=== PATIENT | male | born 1960 | race Caucasian/White ===

== ENCOUNTER 2018-07-27 11:38 | Outpatient (CLI) | payer BC, SELFPAY ==
[2018-07-27 12:45] LABS: HGB 14.8 g/dL (13.5-17.5); Mean Corp. HGB Concentration 35.2 g/dL (32.0-36.0); Mean Corpuscular Hemoglobin 32.7 pg (27.0-33.0); Mean Corpuscular Volume 92.9 fL (80-95); Platelet Count 174 x1000/uL (130-400); RBC 4.52 m/cumm (4.50-6.00); RBC Distribution Width 13.3 % (11.8-14.1); White Blood Cell Count 4.66 k/cumm (4.4-10.8)
[2018-07-27 13:40] LABS: ALT 20 U/L (12-78); AST 10 U/L (15-37); Albumin 3.9 g/dL (3.4-5.0); Alkaline Phosphatase 122 U/L (46-116); BUN 20 mg/dL (7-18); Bilirubin, Total 0.5 mg/dL (0.2-1.0); Calcium 9.1 mg/dL (8.5-10.1); Chloride 103 mmol/L (98-107); Glucose 102 mg/dL (70-100); Potassium 3.9 mmol/L (3.5-5.1); Sodium 140 mmol/L (136-145); Total Protein 7.2 g/dL (6.4-8.2)
== END 2018-07-27 11:58 ==
PROVIDERS: PCP General Practice; Visit Provider Family Medicine
DX: Z51.5 Encounter for palliative care (principal); C71.9 Malignant neoplasm of brain, unspecified
CPT/HCPCS: 36415; 80053; 85027

== ENCOUNTER 2018-07-27 20:36 | Emergency (ER) | payer BC, SELFPAY ==
[2018-07-27 20:42] VITALS: BP 141/82; PULSE 80; RESP 16; TEMP 36.9; O2SAT 99
[2018-07-27 21:16] LABS: Abs Immature Grans 0.01 k/cumm (0.0-0.09); Absolute Basophil Count 0.02 k/cumm (0.0-0.2); Absolute Eosinophil Count 0.16 k/cumm (0.0-0.7); Absolute Lymphocyte Count 0.73 k/cumm (1.2-3.4); Absolute Monocyte Count 0.59 k/cumm (0.11-0.7); Absolute Neutrophil Count 3.51 k/cumm (1.2-6.7); Basophils % 0.4; Eosinophils % 3.2; HCT 40.6 % (40.0-50.0); HGB 14.3 g/dL (13.5-17.5); Immature Grans % 0.2; Lymphocytes % 14.5; Mean Corp. HGB Concentration 35.2 g/dL (32.0-36.0); Mean Corpuscular Hemoglobin 32.4 pg (27.0-33.0); Mean Corpuscular Volume 92.1 fL (80-95); Monocytes % 11.8; Neutrophils % 69.9; Platelet Count 161 x1000/uL (130-400); RBC 4.41 m/cumm (4.50-6.00); RBC Distribution Width 12.9 % (11.8-14.1); White Blood Cell Count 5.02 k/cumm (4.4-10.8)
[2018-07-27] MEDS: Normal Saline 1,000 ML 1000 ML IV (21:20)
[2018-07-27] MEDS: Ondansetron 4 MG/2 ML VIAL IVP (21:25)
[2018-07-27 21:42] LABS: Bilirubin Negative (Negative); Blood Negative (Negative); Clarity Clear; Glucose Negative (Negative); Ketones Negative (Negative); Leukocyte Esterase Negative (Negative); Nitrite Negative (Negative); Specific Gravity 1.015 (1.005-1.025); Urobilinogen 0.2 EU/dL (Up TO 0.2)
[2018-07-27 21:52] LABS: ALT 18 U/L (12-78); AST 12 U/L (15-37); Albumin 3.7 g/dL (3.4-5.0); Alkaline Phosphatase 110 U/L (46-116); Anion Gap 7.8 mmol/L (3-11); BUN 19 mg/dL (7-18); Bilirubin, Total 0.4 mg/dL (0.2-1.0); CO2 28.2 mmol/L (21.0-32.0); CREATININE 0.73 mg/dL (0.70-1.30); Calcium 8.8 mg/dL (8.5-10.1); Chloride 103 mmol/L (98-107); Glucose 111 mg/dL (70-100); Lipase 125 U/L (73-393); Potassium 3.7 mmol/L (3.5-5.1); Sodium 139 mmol/L (136-145); Total Protein 7.4 g/dL (6.4-8.2)
--- NOTE | 2018-07-27 22:19 | W.ED.GENAD ---
Discharge Plan Disposition Patient Disposition: HOME Condition: Stable Discharge Details Chief Complaint: Abd Prob Clinical Impression: Diverticulitis Primary Care Provider: Edwin Mclaughlin ED Provider: Chato Lyman Home Meds and New Rx's Prescriptions: New metronidazole 500 mg tablet 500 mg PO TID 7 Days Qty: 21 RF: 0 ciprofloxacin HCl 500 mg tablet 500 mg PO Q12H Qty: 14 RF: 0 Continued ondansetron HCl [Zofran] 8 mg tablet 8 mg PO QD-BID PRNRF: 0 temozolomide 100 mg capsule 300 mg PO HS RF: 0 tamsulosin [Flomax] 0.4 mg capsule 0.4 mg PO DAILY RF: 0 amlodipine [Norvasc] 10 mg tablet 10 mg PO DAILY RF: 0 zolpidem [Ambien] 10 mg tablet 10 mg PO QHS PRNRF: 0 paroxetine HCl [Paxil] 40 mg tablet 40 mg PO DAILY RF: 0 finasteride [Proscar] 5 mg tablet 5 mg PO DAILY RF: 0 levetiracetam [Keppra] 1,000 mg tablet 1,000 mg PO BID RF: 0 Vimpat 200 mg tablet 200 mg PO BID RF: 0 [id number]-[id number] [Fioricet] 50-300-40 mg capsule 1 cap PO Q4H PRNRF: 0 acetaminophen [Acetaminophen Extra Strength] 500 mg Tablet 1,000 mg PO PRN PRNRF: 0 ibuprofen 600 mg Tablet 600 mg PO TID PRNRF: 0 loratadine [Claritin] 10 mg Tablet 1 tab PO DAILY RF: 0 Discharge Instructions Instructions: Diverticulitis (ED) Additional Instructions: Return immediately to the emergency department for any fever chills, worsening abdominal pain, or further concerns you may have. Otherwise take antibiotics as prescribed until fully complete and follow-up with your primary care provider for reassessment preferably next week Referrals: Edwin Mclaughlin MD [Primary Care Provider] - 1 week (For reassessment of diverticulitis) Discharge Data Discharge Date/Time-TO BE ENTERED AT DEPARTURE: 07/28/18 00:38 Medical Decision Making Patient presenting the emergency department chief complaint of abdominal pain. Patient states he began having mild left lower quadrant yesterday evening but it is has not gotten any better. Patient denies any fever chills vomiting. Physical exam shows significant left lower quadrant tenderness otherwise nondiagnostic unremarkable exam. Concern for diverticulitis with patient stating history of similar. Plan to check labs and perform CT imaging. Patient does have IV contrast dye but does state no issue with oral contrast. Patient given Zofran and fluids pending results. Patient denies need for pain medication at this time. Review of labs is reassuring. Review of CT scan shows unremarkable diverticulitis without abscess or perforation noted. Patient feels comfortable going home on oral antibiotics and return precautions were addressed. Patient started on Cipro and Flagyl and placed up on care management list for a follow-up appointment preferably within the next week. After discussion of diagnosis and plan of care patient has no further needs, questions, or concerns and states clear understanding to return to the emergency department for any worsening symptoms. Lab Data Lab results reviewed: Yes I reviewed the patient's lab results. HPI General Mode of arrival: ambulatory. Date/Time Provider Initiated Documentation: 07/27/18 20:59. Limitations to Documentation: no limitations. Information obtained by: patient and RN notes reviewed. History of Present Illness 58 year old M presents to the emergency department with the chief complaint of LLQ pain, with intensity rated at 4. Quality is described as aching, and is localized to the abdomen. Patient started experiencing this hour(s) (24) No relieving factors improve symptom(s), Patient notes no other symptoms.. Patient did receive the following treatments prior to arrival, none Related Data Home Medications Medication Instructions Recorded Confirmed amlodipine 10 mg tablet 10 mg PO DAILY 07/20/18 07/27/18 [id number] 1 cap PO Q4H PRN 07/20/18 07/27/18 50 mg-300 mg-40 mg capsule finasteride 5 mg tablet 5 mg PO DAILY 07/20/18 07/27/18 lacosamide 200 mg tablet 200 mg PO BID 07/20/18 07/27/18 levetiracetam 1,000 mg tablet 1,000 mg PO BID tab 07/20/18 07/27/18 ondansetron HCl 8 mg tablet 8 mg PO QD-BID PRN 07/20/18 07/27/18 paroxetine 40 mg tablet 40 mg PO DAILY 07/20/18 07/27/18 tamsulosin 0.4 mg capsule 0.4 mg PO DAILY 07/20/18 07/27/18 temozolomide 100 mg capsule 300 mg PO HS cap 07/20/18 07/27/18 zolpidem 10 mg tablet 10 mg PO QHS PRN 07/20/18 07/27/18 acetaminophen [Acetaminophen Extra 1,000 mg PO PRN PRN 07/27/18 07/27/18 Strength] ibuprofen 600 mg PO TID PRN 07/27/18 07/27/18 loratadine [Claritin] 1 tab PO DAILY 07/27/18 07/27/18 ciprofloxacin HCl 500 mg PO Q12H #14 tab 07/28/18 metronidazole 500 mg PO TID 7 Days #21 tab 07/28/18 Previous Rx's Medication Instructions Recorded ciprofloxacin HCl 500 mg PO Q12H #14 tab 07/28/18 metronidazole 500 mg PO TID 7 Days #21 tab 07/28/18 Allergies Allergy/AdvReac Type Severity Reaction Status Date / Time Penicillins Allergy Severe Anaphylaxsi Verified 07/27/18 20:50 s contrast dye Allergy rash Uncoded 07/27/18 20:50 General Stated Complaint: Abd Prob EDGAR: 3 Review of Systems Constitutional Denies chills, Denies fever(s) and Denies poor appetite Cardiovascular Denies chest pain and Denies dyspnea Respiratory Denies cough and Denies dyspnea Gastrointestinal Reports as per HPI, Reports abdominal pain, Denies melena, Denies change in bowel habits, Denies constipation, Denies diarrhea, Reports nausea and Denies vomiting Genitourinary Denies hematuria, Denies difficulty urinating, Denies urinary hesitancy, Denies urinary incontinence and Denies urinary urgency Integumentary/Breasts Denies rash PFSH Medical History Shoulder pain (Acute) Counseling regarding advance directives and goals of care (Acute) Palliative care patient (Chronic) Glioblastoma multiforme (Chronic) Glioblastoma (Acute) History of DVT (deep vein thrombosis) (Acute) Anxiety (Chronic) Depression (Chronic) Hypertension (Chronic) DVT (deep venous thrombosis) (Resolved) Surgical History History of craniotomy (Acute) Presence of IVC filter (Acute) Family History Mother Age: 84 Lung cancer Daughter No problems noted. Social History caregiver/support person: Yes household members: spouse housing: house marital status details: x 37 yrs; has 2 stepdaughters lives independently: No number of children: 1 highest education level completed: Master's degree service: No residential: No current occupational status: disabled leisure activities: art well-balanced diet: daily or most days high-fat food intake: 0-1 times daily daily servings fruits/ve-4 daily servings of milk/calcium: 2-4 eating out: rarely or never reads food labels: seldom or never during the past year weight has: remained stable what type of physical activity do you participate in: walking and irregular exercise Smoking and Tabacco status: Never What is your relationship status?: How often do you talk on the phone with friends or family?: once per week How often do you get together with friends or relatives?: once per week Panel score (0-1 are the most socially isolated patients): 1 Seatbelt use: always Exam Const General: cooperative Orientation: alert, awake and oriented x3 Resp Effort & Inspection: normal respiratory effort and able to speak in complete sentences Auscultation: clear to auscultation bilaterally Cardio Rate: regular rate Rhythm: regular rhythm Heart Sounds: S1 normal and S2 normal GI Palpation: soft, no hepatosplenomegaly, not firm, no guarding, no masses, no pulsatile masses, not rigid, no splenomegaly and tender in the LLQ Auscultation: normal bowel sounds Back/Spine/Pelvis Back: no CVA tenderness Neuro General: alert, awake, oriented x3, gait normal and moves all extremities Course Vital Signs Temperature 36.9 C 07/27/18 20:42 Pulse 80 07/27/18 20:42 Respiratory Rate 16 07/27/18 20:42 Blood Pressure 141/82 H 07/27/18 20:42 Pulse Oximetry 99 07/27/18 20:42 Temperature 36.9 C 07/27/18 20:42 Pulse 80 07/27/18 20:42 Respiratory Rate 16 07/27/18 20:42 Respiratory Effort Non-Labored 07/27/18 20:46 Blood Pressure 141/82 H 07/27/18 20:42 Blood Pressure Position Sitting 07/27/18 20:42 Pulse Oximetry 99 07/27/18 20:42 Oxygen Delivery Method Room Air 07/27/18 20:42 Oxygen Flow Rate 0 07/27/18 20:42 Pain Level 6 07/27/18 20:42 Lab/Test Results Lab/Test Results: Laboratory Tests Range/Units 07/27/18 07/27/18 21:00 21:00 WBC (4.4-10.8) k/cumm 5.02 RBC (4.50-6.00) m/cumm 4.41 L Hgb (13.5-17.5) g/dL 14.3 Hct (40.0-50.0) % 40.6 MCV (80-95) fL 92.1 MCH (27.0-33.0) pg 32.4 MCHC (32.0-36.0) g/dL 35.2 RDW (11.8-14.1) % 12.9 Plt Count (130-400) x1000/uL 161 MPV (8.0-11.0) fL 9.0 Immature Gran % 0.2 Neutrophils % 69.9 Lymphocytes % 14.5 Monocytes % 11.8 Eosinophils % 3.2 Basophils % 0.4 Absolute Neutrophils (1.2-6.7) k/cumm 3.51 Absolute Lymphocytes (1.2-3.4) k/cumm 0.73 L Absolute Monocytes (0.11-0.7) k/cumm 0.59 Absolute Eosinophils (0.0-0.7) k/cumm 0.16 Absolute Basophils (0.0-0.2) k/cumm 0.02 Sodium (136-145) mmol/L 139 Potassium (3.5-5.1) mmol/L 3.7 Chloride (98-107) mmol/L 103 Carbon Dioxide (21.0-32.0) mmol/L 28.2 Anion Gap (3-11) mmol/L 7.8 BUN (7-18) mg/dL 19 H Creatinine (0.70-1.30) mg/dL 0.73 Estimated GFR/1.73 m2 (mL/min/1.73m2) >= 60.00 Glucose (70-100) mg/dL 111 H Calcium (8.5-10.1) mg/dL 8.8 Total Bilirubin (0.2-1.0) mg/dL 0.4 AST (15-37) U/L 12 L ALT (12-78) U/L 18 Alkaline Phosphatase (46-116) U/L 110 Total Protein (6.4-8.2) g/dL 7.4 Albumin (3.4-5.0) g/dL 3.7 Lipase (73-393) U/L 125
--- NOTE | 2018-07-27 22:22 | ED.GENADUL_ITS ---
Discharge Plan Disposition Patient Disposition: HOME Condition: Stable Discharge Details Chief Complaint: Abd Prob Clinical Impression: Diverticulitis Primary Care Provider: Edwin Mclaughlin ED Provider: Chato Lyman Home Meds and New Rx's Prescriptions: New metronidazole 500 mg tablet 500 mg PO TID 7 Days Qty: 21 RF: 0 ciprofloxacin HCl 500 mg tablet 500 mg PO Q12H Qty: 14 RF: 0 Continued ondansetron HCl [Zofran] 8 mg tablet 8 mg PO QD-BID PRNRF: 0 temozolomide 100 mg capsule 300 mg PO HS RF: 0 tamsulosin [Flomax] 0.4 mg capsule 0.4 mg PO DAILY RF: 0 amlodipine [Norvasc] 10 mg tablet 10 mg PO DAILY RF: 0 zolpidem [Ambien] 10 mg tablet 10 mg PO QHS PRNRF: 0 paroxetine HCl [Paxil] 40 mg tablet 40 mg PO DAILY RF: 0 finasteride [Proscar] 5 mg tablet 5 mg PO DAILY RF: 0 levetiracetam [Keppra] 1,000 mg tablet 1,000 mg PO BID RF: 0 Vimpat 200 mg tablet 200 mg PO BID RF: 0 [id number]-vcbprtaikxvlk-xbpv [Fioricet] 50-300-40 mg capsule 1 cap PO Q4H PRNRF: 0 acetaminophen [Acetaminophen Extra Strength] 500 mg Tablet 1,000 mg PO PRN PRNRF: 0 ibuprofen 600 mg Tablet 600 mg PO TID PRNRF: 0 loratadine [Claritin] 10 mg Tablet 1 tab PO DAILY RF: 0 Discharge Instructions Instructions: Diverticulitis (ED) Additional Instructions: Return immediately to the emergency department for any fever chills, worsening abdominal pain, or further concerns you may have. Otherwise take antibiotics as prescribed until fully complete and follow-up with your primary care provider for reassessment preferably next week Referrals: Edwin Mclaughlin MD [Primary Care Provider] - 1 week (For reassessment of diverticulitis) Discharge Data Discharge Date/Time-TO BE ENTERED AT DEPARTURE: 07/28/18 00:38 Medical Decision Making Patient presenting the emergency department chief complaint of abdominal pain. Patient states he began having mild left lower quadrant yesterday evening but it is has not gotten any better. Patient denies any fever chills vomiting. Physical exam shows significant left lower quadrant tenderness otherwise nondiagnostic unremarkable exam. Concern for diverticulitis with patient stati ng history of similar. Plan to check labs and perform CT imaging. Patient does have IV contrast dye but does state no issue with oral contrast. Patient given Zofran and fluids pending results. Patient denies need for pain medication at this time. Review of labs is reassuring. Review of CT scan shows unremarkable diverticulitis without abscess or perforation noted. Patient feels comfortable going home on oral antibiotics and return precautions were addressed. Patient started on Cipro and Flagyl and placed up on care management list for a follow- up appointment preferably within the next week. After discussion of diagnosis and plan of care patient has no further needs, questions, or concerns and states clear understanding to return to the emergency department for any worsening symptoms. Lab Data Lab results reviewed: Yes I reviewed the patient's lab results. HPI General Mode of arrival: ambulatory . Date/Time Provider Initiated Documentation: 07/27/18 20:59 . Limitations to Documentation: no limitations . Information obtained by: patient and RN notes reviewed . History of Present Illness 58 year old M presents to the emergency department with the chief complaint of LLQ pain, with intensity rated at 4. Quality is described as aching, and is localized to the abdomen. Patient started experiencing this hour(s) (24) No relieving factors improve symptom(s), Patient notes no other symptoms.. Patient did receive the following treatments prior to arrival, none Related Data Home Medications Medication Instructions Recorded Confirmed amlodipine 10 mg tablet 10 mg PO DAILY 07/20/18 07/27/18 [id number]-buvtxmyjzxvkc-hqvdgsnj 1 cap PO Q4H PRN 07/20/18 07/27/18 50 mg-300 mg-40 mg capsule finasteride 5 mg tablet 5 mg PO DAILY 07/20/18 07/27/18 lacosamide 200 mg tablet 200 mg PO BID 07/20/18 07/27/18 levetiracetam 1,000 mg tablet 1,000 mg PO BID tab 07/20/18 07/27/18 ondansetron HCl 8 mg tablet 8 mg PO QD-BID PRN 07/20/18 07/27/18 paroxetine 40 mg tablet 40 mg PO DAILY 07/20/18 07/27/18 tamsulosin 0.4 mg capsule 0.4 mg PO DAILY 07/20/18 07/27/18 temozolomide 100 mg capsule 300 mg PO HS cap 07/20/18 07/27/18 zolpidem 10 mg tablet 10 mg PO QHS PRN 07/20/18 07/27/18 acetaminophen [Acetaminophen Extra 1,000 mg PO PRN PRN 07/27/18 07/27/18 Strength] ibuprofen 600 mg PO TID PRN 07/27/18 07/27/18 loratadine [Claritin] 1 tab PO DAILY 07/27/18 07/27/18 ciprofloxacin HCl 500 mg PO Q12H #14 tab 07/28/18 metronidazole 500 mg PO TID 7 Days #21 tab 07/28/18 Previous Rx's Medication Instructions Recorded ciprofloxacin HCl 500 mg PO Q12H #14 tab 07/28/18 metronidazole 500 mg PO TID 7 Days #21 tab 07/28/18 Allergies Allergy/AdvReac Type Severity Reaction Status Date / Time Penicillins Allergy Severe Anaphylaxsi Verified 07/27/18 20:50 s contrast dye Allergy rash Uncoded 07/27/18 20:50 General Stated Complaint: Abd Prob EDGAR: 3 Review of Systems Constitutional Denies chills, Denies fever(s) and Denies poor appetite Cardiovascular Denies chest pain and Denies dyspnea Respiratory Denies cough and Denies dyspnea Gastrointestinal Reports as per HPI, Reports abdominal pain, Denies melena, Denies change in bowel habits, Denies constipation, Denies diarrhea, Reports nausea and Denies vomiting Genitourinary Denies hematuria, Denies difficulty urinating, Denies urinary hesitancy, Denies urinary incontinence and Denies urinary urgency Integumentary/Breasts Denies rash PFSH Medical History Shoulder pain (Acute) Counseling regarding advance directives and goals of care (Acute) Palliative care patient (Chronic) Glioblastoma multiforme (Chronic) Glioblastoma (Acute) History of DVT (deep vein thrombosis) (Acute) Anxiety (Chronic) Depression (Chronic) Hypertension (Chronic) DVT (deep venous thrombosis) (Resolved) Surgical History History of craniotomy (Acute) Presence of IVC filter (Acute) Family History Mother Age: 84 Lung cancer Daughter No problems noted. Social History caregiver/support person: Yes household members: spouse housing: house marital status details: x 37 yrs; has 2 stepdaughters lives independently: No number of children: 1 highest education level completed: Master's degree service: No shelter: No current occupational status: disabled leisure activities: art well-balanced diet: daily or most days high-fat food intake: 0-1 times daily daily servings fruits/ve-4 daily servings of milk/calcium: 2-4 eating out: rarely or never reads food labels: seldom or never during the past year weight has: remained stable what type of physical activity do you participate in: walking and irregular exercise Smoking and Tabacco status: Never What is your relationship status?: How often do you talk on the phone with friends or family?: once per week How often do you get together with friends or relatives?: once per week Panel score (0-1 are the most socially isolated patients): 1 Seatbelt use: always Exam Const General: cooperative Orientation: alert, awake and oriented x3 Resp Effort & Inspection: normal respiratory effort and able to speak in complete sentences Auscultation: clear to auscultation bilaterally Cardio Rate: regular rate Rhythm: regular rhythm Heart Sounds: S1 normal and S2 normal GI Palpation: soft, no hepatosplenomegaly, not firm, no guarding, no masses, no pulsatile masses, not rigid, no splenomegaly and tender in the LLQ Auscultation: normal bowel sounds Back/Spine/Pelvis Back: no CVA tenderness Neuro General: alert, awake, oriented x3, gait normal and moves all extremities Course Vital Signs Temperature 36.9 C 07/27/18 20:42 Pulse 80 07/27/18 20:42 Respiratory Rate 16 07/27/18 20:42 Blood Pressure 141/82 H 07/27/18 20:42 Pulse Oximetry 99 07/27/18 20:42 Temperature 36.9 C 07/27/18 20:42 Pulse 80 07/27/18 20:42 Respiratory Rate 16 07/27/18 20:42 Respiratory Effort Non-Labored 07/27/18 20:46 Blood Pressure 141/82 H 07/27/18 20:42 Blood Pressure Position Sitting 07/27/18 20:42 Pulse Oximetry 99 07/27/18 20:42 Oxygen Delivery Method Room Air 07/27/18 20:42 Oxygen Flow Rate 0 07/27/18 20:42 Pain Level 6 07/27/18 20:42 Lab/Test Results Lab/Test Results: Laboratory Tests Range/Units 07/27/18 07/27/18 21:00 21:00 WBC (4.4-10.8) k/cumm 5.02 RBC (4.50-6.00) m/cumm 4.41 L Hgb (13.5-17.5) g/dL 14.3 Hct (40.0-50.0) % 40.6 MCV (80-95) fL 92.1 MCH (27.0-33.0) pg 32.4 MCHC (32.0-36.0) g/dL 35.2 RDW (11.8-14.1) % 12.9 Plt Count (130-400) x1000/uL 161 MPV (8.0-11.0) fL 9.0 Immature Gran % 0.2 Neutrophils % 69.9 Lymphocytes % 14.5 Monocytes % 11.8 Eosinophils % 3.2 Basophils % 0.4 Absolute Neutrophils (1.2-6.7) k/cumm 3.51 Absolute Lymphocytes (1.2-3.4) k/cumm 0.73 L Absolute Monocytes (0.11-0.7) k/cumm 0.59 Absolute Eosinophils (0.0-0.7) k/cumm 0.16 Absolute Basophils (0.0-0.2) k/cumm 0.02 Sodium (136-145) mmol/L 139 Potassium (3.5-5.1) mmol/L 3.7 Chloride (98-107) mmol/L 103 Carbon Dioxide (21.0-32.0) mmol/L 28.2 Anion Gap (3-11) mmol/L 7.8 BUN (7-18) mg/dL 19 H Creatinine (0.70-1.30) mg/dL 0.73 Estimated GFR/1.73 m2 (mL/min/1.73m2) >= 60.00 Glucose (70-100) mg/dL 111 H Calcium (8.5-10.1) mg/dL 8.8 Total Bilirubin (0.2-1.0) mg/dL 0.4 AST (15-37) U/L 12 L ALT (12-78) U/L 18 Alkaline Phosphatase (46-116) U/L 110 Total Protein (6.4-8.2) g/dL 7.4 Albumin (3.4-5.0) g/dL 3.7 Lipase (73-393) U/L 125
[2018-07-27] MEDS: Omnipaque 350 MG/ML 100 ML BTL IJ (23:07)
[2018-07-27 23:15] VITALS: BP 131/73; PULSE 72; RESP 16; TEMP 36.8; O2SAT 100
--- NOTE | 2018-07-27 23:47 | DI.CT_ITS ---
SYMPTOM/DIAGNOSIS: LLQ ABD PAIN ABDOMEN AND PELVIC CT: CT examination of the abdomen and pelvis was performed with oral contrast only. Images were obtained through the lung bases and show a 2 by 7 mm. in diameter right basilar pulmonary nodule associated with the fissure, presumably representing an intrapulmonary lymph node. No other focal abnormality is seen. Liver and spleen are unremarkable by noncontrast criteria as is the pancreas. Gallbladder has been surgically removed. No biliary dilatation is seen. Abdominal aorta is of normal diameter. Note is made of an IVC filter in place below the level of the renal arteries. Pancreas appears normal. Adrenals appear normal. There are bilateral non obstructing renal calculi. No hydronephrosis or ureterolithiasis identified and urinary bladder is unremarkable in appearance. No significant abdominal wall hernia is seen. Tiny bilateral fat containing inguinal hernias noted. No abdominal or pelvic adenopathy is seen. Appendix appears normal. There is colonic wall thickening in the proximal sigmoid colon with marked associated pericolonic increased fat attenuation consistent with acute diverticulitis. No evidence of perforation or abscess. CONCLUSION: 1. Findings consistent with acute diverticulitis of the proximal sigmoid. 2. Bilateral non obstructing renal calculi.
--- NOTE | 2018-07-28 | DI.VRAD_ITS ---
EXAM: CT Abdomen and Pelvis Without Contrast EXAM DATE/TIME: 07/27/2018 9:40 PM CLINICAL HISTORY: 58 years old, male; Pain; Abdominal pain; Localized; Left lower quadrant (llq) TECHNIQUE: Axial computed tomography images of the abdomen and pelvis without contrast. All CT scans at this facility use at least one of these dose optimization techniques: automated exposure control; mA and/or kV adjustment per patient size (includes targeted exams where dose is matched to clinical indication); or iterative reconstruction. Coronal and sagittal reformatted images were created and reviewed. COMPARISON: No relevant prior studies available. FINDINGS: Lower thorax: Unremarkable. ABDOMEN: Liver: No suspicious lesions. Gallbladder and bile ducts: No acute or concerning findings. Pancreas: Unremarkable. Spleen: No suspicious lesions. Adrenals: Unremarkable. No suspicious nodule. Kidneys and ureters: 8mm stone in the left kidney. 2 mm stone in the right kidney. Stomach and bowel: Inflammatory changes around a sigmoid colon diverticulum. Appendix: Normal appendix. PELVIS: Bladder: Unremarkable as visualized. Reproductive: Unremarkable as visualized. ABDOMEN and PELVIS: Intraperitoneal space: No free air. No significant fluid collection. Bones/joints: No acute fracture. No dislocation. Soft tissues: Unremarkable. Vasculature: Unremarkable. Lymph nodes: Unremarkable. IMPRESSION: Uncomplicated sigmoid colon diverticulitis. Dictated and Authenticated by: Brenden Mcconnell MD. Ordering:ANNELISE Reis MD
[2018-07-28] MEDS: metroNIDAZOLE 500 MG TAB PO (00:20)
[2018-07-28] MEDS: Ciprofloxacin 500 MG TAB PO (00:20)
[2018-07-28 00:30] VITALS: BP 134/80; PULSE 76; RESP 16; O2SAT 99
--- NOTE | 2018-07-31 08:34 | PDOC.ERCMPRO ---
Care Management Progress Note 07/31-Eric FLORES requested assistance with a PCP (Arnoldo) f/u in one week for recheck/reassess diverticulitis. Referral faxed to Dr. Mclaughlin's office this am.
== END 2018-07-28 00:38 | disposition home or self-care (01) ==
PROVIDERS: Emergency Provider Nurse Practitioner Family; PCP General Practice
DX: K57.32 Diverticulitis of large intestine without perforation or abscess without bleeding (principal); I10 Essential (primary) hypertension
CPT/HCPCS: 36415; 80053; 83690; 96361; 96374; 99284; 74176; 81003; 85025; J2405; J3490

== ENCOUNTER 2018-07-28 00:40 | Outpatient (CLI) | payer BC, SELFPAY ==
--- NOTE | 2018-07-28 08:55 | DI.MRI_ITS ---
SYMPTOMS/DIAGNOSIS: PROGRESSION OF DISEASE, GLIOBLASTOMA, C71.9, H/O RESECTION 2017 MRI OF THE BRAIN: Pre and post contrast MRI of the brain was performed according to protocol. There are no priors for comparison at this time. In the region of the left frontal lobe and caudate lobe there is an area of rim enhancement which measures 1.4 cm AP x 0.7 cm transverse x 1.3 cm craniocaudad presumably reflecting the surgical bed. There is also linear enhancement extending along the base of the left frontal lobe. There is thin linear enhancement along the lateral aspect of the frontal horn of the left lateral ventricle. These areas of enhancement appear similar to the reported enhancement on the MRI of the brain from 05/01/18 from [facility] in [place], [place]. No other enhancing areas are seen on the current MRI examination. The FLAIR and T 2 weighed images show hyperintense signal in the white matter in the left frontal lobe, the left basilar ganglia and lentiform nucleus and the medial aspect of the left thalamus. The ventricles appear intact. No midline shift or mass effect is identified. The diffusion weighted images show no evidence of an acute infarct. The gradient images show evidence of old hemorrhage within the surgical bed. The visualized paranasal sinuses are clear. The orbits and retro-orbital soft tissues appear grossly unremarkable. There is a flow void seen in the [place]. IMPRESSION: 1. Rim enhancement seen presumably in the region of the surgical bed involving the left basilar ganglia and left frontal lobe. Unchanged linear enhancement seen along the left frontal lobe and along the frontal horn of the left lateral ventricle. 2. No other abnormal areas of enhancement. 3. T 2 hyperintense signal seen on the FLAIR and T 2 weighted images involving the left frontal lobe, basilar ganglia, lentiform nucleus and the medial aspect of the left thalamus. The prior films, particularly the examination from 05/01/18, should be obtained for directed comparison of the findings.
[2018-07-28] MEDS: Gadoterate meglumine 20 ML VIAL 10 ML IVP (09:47)
== END 2018-07-28 01:00 ==
PROVIDERS: PCP General Practice; Visit Provider Family Medicine
DX: C71.9 Malignant neoplasm of brain, unspecified (principal); Z98.890 Other specified postprocedural states
CPT/HCPCS: 70553

== ENCOUNTER 2018-10-24 03:26 | Emergency (ER) | payer BC, SELFPAY ==
[2018-10-24] VITALS (18 sets, daily range): BP systolic 92–151; BP diastolic 47–84; PULSE 67–72; RESP 20; TEMP 36.6–36.8; O2SAT 91–100
[2018-10-24] MEDS: Normal Saline 1,000 ML 1000 ML IV (03:40)
--- NOTE | 2018-10-24 03:42 | W.ED.GENAD ---
Discharge Plan Disposition Patient Disposition: HOME Condition: Improving Discharge Details Chief Complaint: Abd Prob Clinical Impression: Calculus of distal right ureter Primary Care Provider: Edwin Mclaughlin ED Provider: Ry Bahena Home Meds and New Rx's Prescriptions: Continued lisinopril 20 mg tablet 20 mg PO DAILY RF: 0 methylphenidate HCl [Ritalin LA] 10 mg capsule,ER biphasic 50-50 10 mg PO QAM MDD 10 Qty: 30 RF: 0 temozolomide 100 mg capsule 300 mg PO HS RF: 0 tamsulosin [Flomax] 0.4 mg capsule 0.4 mg PO DAILY RF: 0 amlodipine [Norvasc] 10 mg tablet 10 mg PO DAILY RF: 0 paroxetine HCl [Paxil] 40 mg tablet 40 mg PO DAILY RF: 0 finasteride [Proscar] 5 mg tablet 5 mg PO DAILY RF: 0 Vimpat 200 mg tablet 200 mg PO BID RF: 0 trazodone 150 mg tablet 150 mg PO QHS MDD 300 mg Qty: 90 RF: 0 levetiracetam 1,000 mg tablet 1,000 mg PO BID Qty: 180 RF: 1 yhpvqmdsws-jxepyikqogjtr-dpna [Fioricet] 50-300-40 mg Capsule 1 cap PO Q8H PRNRF: 0 ondansetron HCl [Zofran] 8 mg Tablet 8 mg PO BID PRNRF: 0 dexamethasone 2 mg Tablet 2 mg PO DAILY PRNRF: 0 acetaminophen [Acetaminophen Extra Strength] 500 mg Tablet 1,000 mg PO PRN PRNRF: 0 ibuprofen 600 mg Tablet 600 mg PO TID PRNRF: 0 loratadine [Claritin] 10 mg Tablet 1 tab PO DAILY RF: 0 Discharge Instructions Instructions: How to Strain Your Urine (ED), Kidney Stones (ED) Additional Instructions: Home to rest today. Small, frequent sips of fluids to maintain hydration. May use the provided Vicodin 1 tab every 4 hours if needed for severe pain. Do not take at the same time as you are prescribed acetaminophen. Return if you develop a fever, uncontrollable pain, or any other acute concerns. If you are able to retrieve the stone, it may be analyzed by your primary care physician. Medical Decision Making 58-year-old male with a history of glioblastoma for which she is undergoing chemotherapy. He presents from home with the abrupt onset of sharp right lower quadrant abdominal pain. He is afebrile, and pain with a blood pressure 151/80. He is tender in the abdomen. The differential diagnosis includes appendicitis, renal colic. IV placed, parenteral analgesia administered, patient given fluid bolus and antiemetic. He is referred for laboratory testing and CT images. Patient has not reassuring CBC and chemistries. Involving red blood cells present, no evidence of UTI he has a distal 4 mm right ureteropelvic junction kidney stone. Pain improved. He is appropriate for outpatient management. Discussed with he and his home care as well as return precautions. HPI General Mode of arrival: ambulatory. Date/Time Provider Initiated Documentation: 10/24/18 03:35. Limitations to Documentation: no limitations. Information obtained by: patient and family. History of Present Illness 58 year old M presents to the emergency department with the chief complaint of Right lower quadrant pain, described as severe, Quality is described as sharp, and is localized to the abdomen and right. Patient reports radiation to back. Patient started experiencing this hour(s) and it has been constant and colicky. No relieving factors improve symptom(s), No exacerbating factors reported . Patient notes nausea/vomiting; denies fever/chills. Patient did receive the following treatments prior to arrival, none Related Data Home Medications Medication Instructions Recorded Confirmed amlodipine 10 mg tablet 10 mg PO DAILY 07/20/18 10/24/18 finasteride 5 mg tablet 5 mg PO DAILY 07/20/18 10/24/18 lacosamide 200 mg tablet 200 mg PO BID 07/20/18 10/24/18 paroxetine 40 mg tablet 40 mg PO DAILY 07/20/18 10/24/18 tamsulosin 0.4 mg capsule 0.4 mg PO DAILY 07/20/18 10/24/18 temozolomide 100 mg capsule 300 mg PO HS cap 07/20/18 10/10/18 acetaminophen [Acetaminophen Extra 1,000 mg PO PRN PRN 07/27/18 10/24/18 Strength] ibuprofen 600 mg PO TID PRN 07/27/18 10/24/18 loratadine [Claritin] 1 tab PO DAILY 07/27/18 10/24/18 levetiracetam 1,000 mg tablet 1,000 mg PO BID #180 tab 09/07/18 10/24/18 trazodone 150 mg tablet 150 mg PO QHS #90 tab MDD 300 mg 09/19/18 10/24/18 lisinopril 20 mg tablet 20 mg PO DAILY 10/10/18 10/10/18 methylphenidate LA 10 mg 10 mg PO QAM #30 cap MDD 10 10/10/18 10/24/18 capsule,extended release biphasic 50-50 vhvibrqgdx-paarkvftqisla-fifr 1 cap PO Q8H PRN 10/24/18 10/24/18 [Fioricet] dexamethasone 2 mg PO DAILY PRN 10/24/18 10/24/18 ondansetron HCl [Zofran] 8 mg PO BID PRN 10/24/18 10/24/18 Previous Rx's Medication Instructions Recorded levetiracetam 1,000 mg tablet 1,000 mg PO BID #180 tab 09/07/18 trazodone 150 mg tablet 150 mg PO QHS #90 tab MDD 300 mg 09/19/18 methylphenidate LA 10 mg 10 mg PO QAM #30 cap MDD 10 10/10/18 capsule,extended release biphasic 50-50 Allergies Allergy/AdvReac Type Severity Reaction Status Date / Time Penicillins Allergy Severe Anaphylaxsi Verified 10/24/18 03:31 s contrast dye Allergy rash Uncoded 10/24/18 03:31 General Stated Complaint: Abd Prob EDGAR: 3 Review of Systems Review of Systems Undergoing chemotherapy for glioblastoma 6 systems reviewed and otherwise negative [facility] Medical History Fatigue (Chronic) Shoulder pain (Chronic) Counseling regarding advance directives and goals of care (Acute) Palliative care patient (Chronic) Glioblastoma multiforme (Chronic) Glioblastoma (Acute) History of DVT (deep vein thrombosis) (Acute) Anxiety (Chronic) Depression (Chronic) Financial difficulties (Chronic) Hypertension (Chronic) DVT (deep venous thrombosis) (Resolved) Surgical History Presence of IVC filter (Acute) History of craniotomy (Chronic) Family History Mother Age: 84 Lung cancer Daughter No problems noted. 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 Pets and animals: Yes What is your relationship status?: How often do you talk on the phone with friends or family?: once per week How often do you get together with friends or relatives?: once per week Panel score (0-1 are the most socially isolated patients): 1 What type of physical activity do you participate in: walking and irregular exercise Special brielle needs: No Agree to transfusion: Yes Seatbelt use: always Do you feel safe in your relationship?: Yes Additional Social history: worries about his , who has history of depression and anxiety bought house [place] and discovered upon moving to [place] that it needs extensive foundation work, expensive rehab Exam Narrative Exam Narrative: GEN: awake, alert, oriented 3. Pleasant, well groomed, interactive. HEAD: Normocephalic, atraumatic ENT: Mucous membranes moist, oropharynx unremarkable, External ear exam unremarkable EYES: PERRL, EOMI NECK: Full ROM, no GUMARO, no menigismus CHEST/RESP: Nontender, clear to auscultation bilateral, no wheeze/rhonchi/rales CARDIOVASCULAR: RRR, no murmur, rub jacquie. 2+ Rad pulse bilateral ABDOMEN: Soft, tender in the right lower quadrant without rebound, no mass. +Bowel sounds EXT: Full ROM, no edema, no rash Neuro: Grossly normal neurologic exam, conversant, interactive. Psych: Speech fluent, thoughts congruent, affect normal Course Vital Signs Temperature 36.6 C 10/24/18 03:29 Pulse 67 10/24/18 03:29 Respiratory Rate 20 10/24/18 03:29 Blood Pressure 151/80 H 10/24/18 03:29 Pulse Oximetry 100 10/24/18 03:29 Temperature 36.6 C 10/24/18 03:29 Temperature Source Skin 10/24/18 03:29 Pulse 67 10/24/18 03:29 Respiratory Rate 20 10/24/18 03:29 Blood Pressure 151/80 H 10/24/18 03:29 Blood Pressure Position Sitting 10/24/18 03:29 Pulse Oximetry 100 10/24/18 03:29 Oxygen Delivery Method Room Air 10/24/18 03:29 Oxygen Flow Rate 0 10/24/18 03:29 Pain Level 6 10/24/18 03:29
--- NOTE | 2018-10-24 03:45 | ED.GENADUL_ITS ---
Discharge Plan Disposition Patient Disposition: HOME Condition: Improving Discharge Details Chief Complaint: Abd Prob Clinical Impression: Calculus of distal right ureter Primary Care Provider: Edwin Mclaughlin ED Provider: Ry Bahena Home Meds and New Rx's Prescriptions: Continued lisinopril 20 mg tablet 20 mg PO DAILY RF: 0 methylphenidate HCl [Ritalin LA] 10 mg capsule,ER biphasic 50-50 10 mg PO QAM MDD 10 Qty: 30 RF: 0 temozolomide 100 mg capsule 300 mg PO HS RF: 0 tamsulosin [Flomax] 0.4 mg capsule 0.4 mg PO DAILY RF: 0 amlodipine [Norvasc] 10 mg tablet 10 mg PO DAILY RF: 0 paroxetine HCl [Paxil] 40 mg tablet 40 mg PO DAILY RF: 0 finasteride [Proscar] 5 mg tablet 5 mg PO DAILY RF: 0 Vimpat 200 mg tablet 200 mg PO BID RF: 0 trazodone 150 mg tablet 150 mg PO QHS MDD 300 mg Qty: 90 RF: 0 levetiracetam 1,000 mg tablet 1,000 mg PO BID Qty: 180 RF: 1 rurocmewbo-djvhzjqmhjxwg-urqp [Fioricet] 50-300-40 mg Capsule 1 cap PO Q8H PRNRF: 0 ondansetron HCl [Zofran] 8 mg Tablet 8 mg PO BID PRNRF: 0 dexamethasone 2 mg Tablet 2 mg PO DAILY PRNRF: 0 acetaminophen [Acetaminophen Extra Strength] 500 mg Tablet 1,000 mg PO PRN PRNRF: 0 ibuprofen 600 mg Tablet 600 mg PO TID PRNRF: 0 loratadine [Claritin] 10 mg Tablet 1 tab PO DAILY RF: 0 Discharge Instructions Instructions: How to Strain Your Urine (ED), Kidney Stones (ED) Additional Instructions: Home to rest today. Small, frequent sips of fluids to maintain hydration. May use the provided Vicodin 1 tab every 4 hours if needed for severe pain. Do not take at the same time as you are prescribed acetaminophen. Return if you develop a fever, uncontrollable pain, or any other acute concerns. If you are able to retrieve the stone, it may be analyzed by your primary care physician. Medical Decision Making 58-year-old male with a history of glioblastoma for which she is undergoing chemotherapy. He presents from home with the abrupt onset of sharp right lower quadrant abdominal pain. He is afebrile, and pain with a blood pressure 151/80. He is tender in the abdomen. The differential diagnosis includes appendicitis, renal colic. IV placed, parenteral analgesia administered, patient given fluid bolus and antiemetic. He is referred for laboratory testing and CT images. Patient has not reassuring CBC and chemistries. Involving red blood cells present, no evidence of UTI he has a distal 4 mm right ureteropelvic junction kidney stone. Pain improved. He is appropriate for outpatient management. Discussed with he and his home care as well as return precautions. HPI General Mode of arrival: ambulatory . Date/Time Provider Initiated Documentation: 10/24/18 03:35 . Limitations to Documentation: no limitations . Information obtained by: patient and family . History of Present Illness 58 year old M presents to the emergency department with the chief complaint of Right lower quadrant pain, described as severe, Quality is described as sharp, and is localized to the abdomen and right. Patient reports radiation to back. Patient started experiencing this hour(s) and it has been constant and colicky. No relieving factors improve symptom(s), No exacerbating factors reported . Patient notes nausea/vomiting; denies fever/chills. Patient did receive the following treatments prior to arrival, none Related Data Home Medications Medication Instructions Recorded Confirmed amlodipine 10 mg tablet 10 mg PO DAILY 07/20/18 10/24/18 finasteride 5 mg tablet 5 mg PO DAILY 07/20/18 10/24/18 lacosamide 200 mg tablet 200 mg PO BID 07/20/18 10/24/18 paroxetine 40 mg tablet 40 mg PO DAILY 07/20/18 10/24/18 tamsulosin 0.4 mg capsule 0.4 mg PO DAILY 07/20/18 10/24/18 temozolomide 100 mg capsule 300 mg PO HS cap 07/20/18 10/10/18 acetaminophen [Acetaminophen Extra 1,000 mg PO PRN PRN 07/27/18 10/24/18 Strength] ibuprofen 600 mg PO TID PRN 07/27/18 10/24/18 loratadine [Claritin] 1 tab PO DAILY 07/27/18 10/24/18 levetiracetam 1,000 mg tablet 1,000 mg PO BID #180 tab 09/07/18 10/24/18 trazodone 150 mg tablet 150 mg PO QHS #90 tab MDD 300 mg 09/19/18 10/24/18 lisinopril 20 mg tablet 20 mg PO DAILY 10/10/18 10/10/18 methylphenidate LA 10 mg 10 mg PO QAM #30 cap MDD 10 10/10/18 10/24/18 capsule,extended release biphasic 50-50 ozhueavjbr-mhtyxuaiypfyp-vujy 1 cap PO Q8H PRN 10/24/18 10/24/18 [Fioricet] dexamethasone 2 mg PO DAILY PRN 10/24/18 10/24/18 ondansetron HCl [Zofran] 8 mg PO BID PRN 10/24/18 10/24/18 Previous Rx's Medication Instructions Recorded levetiracetam 1,000 mg tablet 1,000 mg PO BID #180 tab 09/07/18 trazodone 150 mg tablet 150 mg PO QHS #90 tab MDD 300 mg 09/19/18 methylphenidate LA 10 mg 10 mg PO QAM #30 cap MDD 10 10/10/18 capsule,extended release biphasic 50-50 Allergies Allergy/AdvReac Type Severity Reaction Status Date / Time Penicillins Allergy Severe Anaphylaxsi Verified 10/24/18 03:31 s contrast dye Allergy rash Uncoded 10/24/18 03:31 General Stated Complaint: Abd Prob EDGAR: 3 Review of Systems Review of Systems Undergoing chemotherapy for glioblastoma 6 systems reviewed and otherwise negative [facility] Medical History Fatigue (Chronic) Shoulder pain (Chronic) Counseling regarding advance directives and goals of care (Acute) Palliative care patient (Chronic) Glioblastoma multiforme (Chronic) Glioblastoma (Acute) History of DVT (deep vein thrombosis) (Acute) Anxiety (Chronic) Depression (Chronic) Financial difficulties (Chronic) Hypertension (Chronic) DVT (deep venous thrombosis) (Resolved) Surgical History Presence of IVC filter (Acute) History of craniotomy (Chronic) Family History Mother Age: 84 Lung cancer Daughter No problems noted. 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 Pets and animals: Yes What is your relationship status?: How often do you talk on the phone with friends or family?: once per week How often do you get together with friends or relatives?: once per week Panel score (0-1 are the most socially isolated patients): 1 What type of physical activity do you participate in: walking and irregular exercise Special brielle needs: No Agree to transfusion: Yes Seatbelt use: always Do you feel safe in your relationship?: Yes Additional Social history: worries about his , who has history of depression and anxiety bought house [place] and discovered upon moving to [place] that it needs extensive foundation work, expensive rehab Exam Narrative Exam Narrative: GEN: awake, alert, oriented 3. Pleasant, well groomed, interactive. HEAD: Normocephalic, atraumatic ENT: Mucous membranes moist, oropharynx unremarkable, External ear exam unremarkable EYES: PERRL, EOMI NECK: Full ROM, no GUMARO, no menigismus CHEST/RESP: Nontender, clear to auscultation bilateral, no wheeze/rhonchi/rales CARDIOVASCULAR: RRR, no murmur, rub jacquie. 2+ Rad pulse bilateral ABDOMEN: Soft, tender in the right lower quadrant without rebound, no mass. +Bowel sounds EXT: Full ROM, no edema, no rash Neuro: Grossly normal neurologic exam, conversant, interactive. Psych: Speech fluent, thoughts congruent, affect normal Course Vital Signs Temperature 36.6 C 10/24/18 03:29 Pulse 67 10/24/18 03:29 Respiratory Rate 20 10/24/18 03:29 Blood Pressure 151/80 H 10/24/18 03:29 Pulse Oximetry 100 10/24/18 03:29 Temperature 36.6 C 10/24/18 03:29 Temperature Source Skin 10/24/18 03:29 Pulse 67 10/24/18 03:29 Respiratory Rate 20 10/24/18 03:29 Blood Pressure 151/80 H 10/24/18 03:29 Blood Pressure Position Sitting 10/24/18 03:29 Pulse Oximetry 100 10/24/18 03:29 Oxygen Delivery Method Room Air 10/24/18 03:29 Oxygen Flow Rate 0 10/24/18 03:29 Pain Level 6 10/24/18 03:29
[2018-10-24] MEDS: Ondansetron 4 MG/2 ML VIAL IVP (03:46)
[2018-10-24] MEDS: HYDROmorphone 2 MG/ML VIAL 0.5 MG IVP (03:47)
[2018-10-24 03:55] LABS: Abs Immature Grans 0.01 k/cumm (0.0-0.09); Absolute Basophil Count 0.03 k/cumm (0.0-0.2); Absolute Eosinophil Count 0.11 k/cumm (0.0-0.7); Absolute Lymphocyte Count 0.52 k/cumm (1.2-3.4); Absolute Monocyte Count 0.32 k/cumm (0.11-0.7); Absolute Neutrophil Count 3.72 k/cumm (1.2-6.7); Basophils % 0.6; Eosinophils % 2.3; HCT 41.1 % (40.0-50.0); HGB 14.9 g/dL (13.5-17.5); Immature Grans % 0.2; Mean Corp. HGB Concentration 36.3 g/dL (32.0-36.0); Mean Corpuscular Hemoglobin 33.3 pg (27.0-33.0); Mean Corpuscular Volume 91.9 fL (80-95); Mean Platelet Volume 8.9 fL (8.0-11.0); Monocytes % 6.8; Neutrophils % 79.1; Platelet Count 167 x1000/uL (130-400); RBC 4.47 m/cumm (4.50-6.00); RBC Distribution Width 13.2 % (11.8-14.1); White Blood Cell Count 4.71 k/cumm (4.4-10.8)
[2018-10-24 04:16] LABS: ALT 25 U/L (12-78); AST 9 U/L (15-37); Albumin 4.3 g/dL (3.4-5.0); Alkaline Phosphatase 98 U/L (46-116); Anion Gap 10.5 mmol/L (3-11); BUN 19 mg/dL (7-18); Bilirubin, Total 0.6 mg/dL (0.2-1.0); CO2 26.5 mmol/L (21.0-32.0); CREATININE 0.98 mg/dL (0.70-1.30); Calcium 9.2 mg/dL (8.5-10.1); Chloride 102 mmol/L (98-107); Glucose 142 mg/dL (70-100); Potassium 3.6 mmol/L (3.5-5.1); Sodium 139 mmol/L (136-145); Total Protein 7.7 g/dL (6.4-8.2)
--- NOTE | 2018-10-24 04:25 | DI.CT_ITS ---
SYMPTOM/DIAGNOSIS: RT FLANK AND RLQ PAIN, H/O KIDNEY STONES, H/O BRAIN TUMOR ABDOMEN AND PELVIC CT: The study was carried out without contrast enhancement. The liver is normal. The patient is status post cholecystectomy. The pancreas and spleen and adrenals are normal. Non obstructing renal calculi are demonstrated. There is a 4 mm. calculus at the right ureteropelvic junction causing mild right hydronephrosis. Note is also made of a small left peripelvic renal cyst. There is colonic diverticulosis without evidence of diverticulitis. There is nothing to suggest an acute appendix. The bladder is unremarkable. The reproductive organs as visualized are unremarkable. There is no evidence of free air or free fluid in the intraperitoneal space. No acute bony abnormality is seen. Note is made of tiny fat containing inguinal hernias. There is an IVC filter in place, its tip ending below the renal pedicles. There is no evidence of lymphadenopathy. SUMMARY: A 4 mm. right ureteropelvic stone is identified resulting in mild right hydronephrosis.
[2018-10-24] MEDS: Ketorolac 15 MG/ML VIAL IVP (04:31)
--- NOTE | 2018-10-24 04:43 | DI.VRAD_ITS ---
EXAM: CT Abdomen and Pelvis Without Contrast EXAM DATE/TIME: 10/24/2018 3:43 AM CLINICAL HISTORY: 58 years old, male; Abdominal pain; Other: Rlq and flank; Prior surgery; Surgery date: 6+ months; Surgery type: Gallbladder removed and ivc filter; Patient HX: Rlq pain radiating into R flank, HX of kidney stones, ; additional info: HX of glioblastoma TECHNIQUE: Imaging protocol: Axial computed tomography images of the abdomen and pelvis without contrast. Coronal and sagittal reformatted images were created and reviewed. Radiation optimization: All CT scans at this facility use at least one of these dose optimization techniques: automated exposure control; mA and/or kV adjustment per patient size (includes targeted exams where dose is matched to clinical indication); or iterative reconstruction. COMPARISON: CT ABDOMEN PELVIS WO 07/27/2018 11:22 PM FINDINGS: ABDOMEN: Liver: Normal. No mass. Gallbladder and bile ducts: Status post cholecystectomy. Pancreas: Normal. No ductal dilation. Spleen: Normal. No splenomegaly. Adrenals: Normal. No mass. Kidneys and ureters: Stable renal lesions. Nonobstructing renal calculi. 4 mm calculus right ureteropelvic junction with mild right hydronephrosis. Stomach and bowel: Colonic diverticulosis. Appendix: No evidence of appendicitis. PELVIS: Bladder: Unremarkable as visualized. Reproductive: Unremarkable as visualized. ABDOMEN and PELVIS: Intraperitoneal space: Normal. No free air. No significant fluid collection. Bones/joints: Degenerative change of the spine. Soft tissues: Tiny fat-containing inguinal hernias. Vasculature: Infrarenal IVC filter. Lymph nodes: Normal. No enlarged lymph nodes. IMPRESSION: 4 mm calculus right ureteropelvic junction with mild right hydronephrosis. Dictated and Authenticated by: Glen Lipscomb MD. Ordering:JUN Raza MD
[2018-10-24 05:09] LABS: Bilirubin Negative (Negative); Blood Large (Negative); Clarity Clear; Glucose Negative (Negative); Ketones 15 mg/dL (Negative); Leukocyte Esterase Negative (Negative); Nitrite Negative (Negative); Specific Gravity 1.025 (1.005-1.025); Urobilinogen 0.2 EU/dL (Up TO 0.2); pH 5.5 (5-8)
[2018-10-24 05:19] LABS: Bacteria Few HPF (Negative); C & S Indicated? No; Casts Negative LPF (Negative); Crystals Negative HPF (Negative); Epithelial Cells Rare HPF (Negative); Mucus Negative (Negative); WBC 0-2 HPF (0-5)
[2018-10-24] MEDS: HYDROcodone 5/Acetaminophen 325 TAB PO (05:33)
== END 2018-10-24 06:15 | disposition home or self-care (01) ==
PROVIDERS: Emergency Provider Emergency Medicine; PCP General Practice
DX: N20.1 Calculus of ureter (principal)
CPT/HCPCS: 80053; 96361; 96374; 96375; 99285; 74176; 81003; 81015; 85025; 99284; J1885; J2405

== ENCOUNTER 2020-01-17 22:23 | Outpatient (REF) | payer MEDICARE, BC, SELFPAY ==
[2020-01-17 19:57] LABS: HCT 46.2 % (40.0-50.0); HGB 16.2 g/dL (13.5-17.5); MCH 32.6 pg (27.0-33.0); MCHC 35.1 % (32.0-36.0); MPV 9.4 fL (8.0-11.0); Platelet Count 222 10^3/uL (130-400); RBC 4.97 10^6/uL (4.36-5.78); RDW 12.1 % (11.8-14.1); RDW-SD 41.7 fL; WBC 4.59 10^3/uL (4.4-10.8)
[2020-01-17 20:30] LABS: TSH (W/Ref FT4) 5.08 uIU/mL (0.36-3.74)
[2020-01-17 20:47] LABS: ALT 31 U/L (16-63); AST 17 U/L (15-37); Albumin 4.3 g/dL (3.4-5.0); Alkaline Phosphatase 102 U/L (46-116); Anion Gap 10.3 mmol/L (3-11); BUN 18 mg/dL (7-18); Bilirubin, Total 0.4 mg/dL (0.2-1.0); CO2 25.7 mmol/L (21.0-32.0); CREATININE 0.98 mg/dL (0.70-1.30); Calcium 9.2 mg/dL (8.5-10.1); Chloride 102 mmol/L (98-107); Glucose 119 mg/dL (74-106); Potassium 3.6 mmol/L (3.5-5.1); Sodium 138 mmol/L (136-145); Total Protein 7.5 g/dL (6.4-8.2); Vitamin B12 545 pg/mL (193-986)
[2020-01-17 20:54] LABS: FREE T4 0.98 ng/dL (0.76-1.46)
== END 2020-01-17 22:43 ==
LOC: NCHCN 22:23
PROVIDERS: Visit Provider Family Medicine
DX: E53.8 Deficiency of other specified B group vitamins (principal); R63.5 Abnormal weight gain; R56.9 Unspecified convulsions; I10 Essential (primary) hypertension
CPT/HCPCS: 80053; 85027; 82607; 84439; 84443

== ENCOUNTER 2020-01-28 00:46 | Outpatient (CLI) | payer MEDICARE, SELFPAY ==
--- NOTE | 2020-01-28 08:30 | DI.MRI_ITS ---
EXAM: MR BRAIN WO/W CLINICAL HISTORY: ?progression of disease,GLIOBLASTOMA,MEMORY PROBLEMS,C71.9,R41.3,F80.9. TECHNIQUE: Multiplanar multisequence MRI was performed. COMPARISON: MR MR brain wo/w from 07/28/2018 FINDINGS: MR examination of brain was performed according to the usual protocol with additional post contrast a xial and coronal T1 weighted images. Examination is compared with prior scan of July 28, 2018. The patient has reportedly had resection of left frontal glioblastoma. On today's examination there are again noted residual areas of enhancement which are predominantly li near and associated with the surgical bed. These are less prominent than on the prior examination. No new areas of enhancement at the surgical bed or elsewhere in the brain. No additional new signal abnormality identified in the brain. Periventricular white matter signal ch anges noted consistent with microvascular ischemic changes. Diffusion-weighted imaging is unremarkable. Susceptibility weighted imaging is unremarkable. There is normal flow void in the ltnpni-go-Hwutlt vasculature. The orbital and temporal bone structu res appear intact. IMPRESSION: Stable postsurgical appearance of left frontal glioblastoma, decreased post contrast enhancement at t he surgical site, no new disease identified. DATA REPOSITORY:
[2020-01-28] MEDS: Gadoterate meglumine 20 ML VIAL IVP (14:33)
[2020-01-28] MEDS: Normal Saline Flush 10 ML SYR IVP (14:34)
== END 2020-01-28 01:06 ==
PROVIDERS: PCP Family Medicine; Visit Provider Family Medicine
DX: C71.9 Malignant neoplasm of brain, unspecified (principal); R41.3 Other amnesia; F80.9 Developmental disorder of speech and language, unspecified; Z98.890 Other specified postprocedural states
CPT/HCPCS: 70553

== ENCOUNTER 2020-10-13 18:22 | Outpatient (REF) | payer MEDICARE, SELFPAY ==
[2020-10-14 16:46] LABS: Bilirubin Small (Negative); Blood Large (Negative); Clarity Clear (Clear); Glucose Negative (Negative); Ketones Trace mg/dL (Negative); Leukocyte Esterase Negative (Negative); Nitrite Negative (Negative); Specific Gravity >= 1.030 (1.005-1.025); Urobilinogen 0.2 EU/dL (Up TO 0.2); pH 5.5 (5-8)
[2020-10-14 17:00] LABS: Bacteria Negative HPF (Negative); Crystals Few Calcium Oxalate HPF (Negative); Epithelial Cells Negative HPF (Negative); Mucus Negative (Negative); WBC 0-2 HPF (0-5)
[2020-10-14 17:01] LABS: C & S Indicated? No; Casts Negative LPF (Negative)
== END 2020-10-13 18:23 | disposition home or self-care (01) ==
LOC: NCHCN 18:22
PROVIDERS: PCP Family Medicine; Visit Provider Family Medicine
DX: R31.9 Hematuria, unspecified (principal)
CPT/HCPCS: 81003; 81015